=== PATIENT | female | born 1965 | race Caucasian/White ===

== ENCOUNTER → 2021-03-30 | Outpatient (CLI) | payer BC | LOC: LAB 17:50 → LAB SHORT 17:50 | DX: R30.9 Painful micturition, unspecified (principal) | CPT/HCPCS: 87077; 87086; 87186 ==

== ENCOUNTER → 2021-04-18 | Outpatient (CLI) | payer BC ==
[2021-04-18 15:34] LABS: Red Blood Cells, Urine 0-2 /hpf (0-2)
[2021-04-18 15:35] LABS: Bacteria Few /hpf; Squamous Epithelial Cells Few /hpf (Few)
== END | disposition home or self-care (01) ==
LOC: LAB 12:30 → LAB SHORT 12:30
PROVIDERS: Family Medicine
DX: R30.9 Painful micturition, unspecified (principal)
CPT/HCPCS: 81015; 87086

== ENCOUNTER → 2021-06-19 | Outpatient (CLI) | payer BC | LOC: LAB SHORT 16:22 → LAB 16:22 | DX: N39.0 Urinary tract infection, site not specified (principal) | CPT/HCPCS: 87077; 87086; 87186 ==

== ENCOUNTER 2022-09-19 12:18 | Day surgery (SDC) | payer BC ==
[~2022-09-19] VITALS: Ht 170.2 cm; Wt 67.7 kg
[2022-09-19] MEDS ORDERED: GABA300 PO (12:33)
--- NOTE | 2022-09-19 13:27 | NUR ---
09/19/22 1327 Marlee Duenas PREOP LOCALIZED BLOCK OF 10ML 1% LIDOCAINE WITH EPI ADMINISTERED AT BEDSIDE BY DR CARDENAS. DR ORTIZ AT BEDSIDE. PT TOLERATED WITHOUT ANY DIFFICULTIES.
== END 2022-09-19 14:26 | disposition home or self-care (01) ==
LOC: ORSCSDS 12:18
PROVIDERS: Orthopaedic Surgery
PROC: 01N54ZZ Release Median Nerve, Percutaneous Endoscopic Approach (ICD-10-PCS; principal; 2022-09-19 13:30)
DX: G56.03 Carpal tunnel syndrome, bilateral upper limbs (principal); I10 Essential (primary) hypertension; F41.9 Anxiety disorder, unspecified; Z79.899 Other long term (current) drug therapy
CPT/HCPCS: J2250; J3010; J7120